=== PATIENT | female | born 1975 | race Hispanic/Latino ===

== ENCOUNTER 2017-12-16 14:37 | Outpatient (CLI) | payer OTHER ==
--- NOTE | 2017-12-16 14:57 | XRay Report ---
XRAY RIGHT KNEE 4 THREE VIEWS: 01/13/18 CLINICAL: Right knee pain. FINDINGS: The joint spaces are normal. There are tiny patellofemoral osteophytes.No joint effusion.Normal soft tissues. IMPRESSION: Minimal arthritis.
== END 2017-12-16 14:38 | disposition home or self-care (01) ==
LOC: SPVIMAG 14:37
PROVIDERS: ATTEND Orthopaedic Surgery
DX: M17.11 Unilateral primary osteoarthritis, right knee (principal)

== ENCOUNTER 2018-01-10 08:43 | Outpatient (CLI) | payer OTHER ==
--- NOTE | 2018-01-10 09:36 | XRay Report ---
RIGHT HIP: Pain. Standing views obtained. The bony architecture is intact without evidence of fracture or dislocation. No significant soft tissue abnormality is seen. IMPRESSION: Normal right hip.
== END 2018-01-10 08:44 | disposition home or self-care (01) ==
LOC: SPVIMAG 08:43
PROVIDERS: ATTEND Orthopaedic Surgery Sports Medicine
DX: M25.551 Pain in right hip (principal)

== ENCOUNTER 2019-08-07 10:01 | Outpatient (CLI) | payer OTHER ==
--- NOTE | 2019-08-07 14:32 | Mammography Report ---
DIGITAL SCREENING MAMMOGRAM WITH CAD, 08/07/2019 INDICATION: Baseline screening mammography. TECHNIQUE: Digital bilateral 2D mammography was obtained in the craniocaudal and mediolateral obliq ue projections. This examination was interpreted with the benefit of Computer-Aided Detection analysi s. COMPARISON: None. FINDINGS: Breast Density: The breasts are heterogeneously dense, which may obscure small masses. There is no evidence of dominant mass, suspicious calcifications or architectural distortion in eithe r breast. IMPRESSION: No mammographic evidence of malignancy. Follow up recommendation: Routine yearly BI-RADS Category 1: Negative. A "normal" or negative report should not discourage follow up or biopsy of a clinically significant f inding. A written summary of these findings will be mailed to the patient. The patient will be entered into a mammography reporting system which will generate a reminder letter for the patient's next appointmen t at the appropriate interval. The [employer] recommends yearly mammograms starting at age 40 and continuing as l lydia as a woman is in good health. Breast MRI is recommended for women with an approximate 20-25% or greater lifetime risk of breast cancer, including women with a strong family history of breast or ova benigno cancer or who have been treated for Hodgkin's disease. Signer Name: Ermias Pierce MD Signed: 08/07/2019 2:28 PM Workstation Name: [id number]
== END 2019-08-07 10:02 | disposition home or self-care (01) ==
LOC: SPVWC 10:01
PROVIDERS: ATTEND Nurse Practitioner Gerontology
DX: Z12.31 Encounter for screening mammogram for malignant neoplasm of breast (principal)
CPT/HCPCS: 77067